=== PATIENT | male | born 1980 | race Caucasian/White ===

== ENCOUNTER 2021-04-19 07:13 | Day surgery (SDC) | payer OTHER ==
[~2021-04-19] VITALS: Ht 172.7 cm; Wt 115.7 kg
[~2021-04-19 07:13] MED LIST: ESOM40CA39 PO; NITR0.4S29 SL; PRAV20TA3 PO
[2021-04-19] MEDS ORDERED: LIDOCAINE 2%HCL (LOCAL ANESTH.) INJ 20ML MDV ONE (07:37)
[2021-04-19] MEDS ORDERED: IODIXANOL 320MG/ML 100ML BTL IV ONE (07:37)
[2021-04-19] MEDS ORDERED: ANGIOMAX 250 MG VIAL IV ONE (08:03)
[2021-04-19] MEDS ORDERED: HEPARIN SODIUM (PORCINE) 5000 UNITS/ML 1ML VIAL ONE (08:03)
[2021-04-19] MEDS ORDERED: fentaNYL CITRATE 100 MCG/2 ML VL ONE (08:04)
[2021-04-19] MEDS ORDERED: MIDAZOLAM HCL 2MG/2ML 2ml VIAL (1mg/ml) ONE (08:04)
[2021-04-19] MEDS ORDERED: SODIUM CHL 0.9% 0 ML ONE (08:04)
[2021-04-19] MEDS ORDERED: VERAPAMIL 2.5MG/ML INJ 2ML VIAL IV ONE (08:04)
[2021-04-19] MEDS ORDERED: SODIUM CHL 0.9% 50 ML ONE (08:13)
[2021-04-19] MEDS ORDERED: NITROGLYCERIN 5MG/ML 10ML VIAL IV ONE (08:13)
== END 2021-04-19 11:11 | disposition home or self-care (01) ==
LOC: CATH 07:13
PROVIDERS: ATTEND Internal Medicine Cardiovascular Disease
DX: R94.39 Abnormal result of other cardiovascular function study (principal); E78.5 Hyperlipidemia, unspecified; Z79.899 Other long term (current) drug therapy; Z98.890 Other specified postprocedural states; Z20.822 Contact with and (suspected) exposure to COVID-19; Z68.38 Body mass index [BMI] 38.0-38.9, adult
CPT/HCPCS: 93458; C1769; C1887; C1894; J1644; J2250; J3010; J3490; J7030; Q9967; U0003; 99152; 99153